=== PATIENT | female | born 1995 | race American Indian/Alaskan Native ===

== ENCOUNTER 2017-08-10 00:06 | Inpatient (IN) | payer MEDICAID, OTHER ==
[2017-08-10 01:01] VITALS: BMI 21.4
[2017-08-10] MEDS ORDERED: Lactated Ringer's 1,000 ML IV SCH ×3 (02:15→12:45)
--- NOTE | 2017-08-10 02:42 | OBHP ---
Datetime: 08/10/2017 02:40 IP Adm Impression: Term, intrauterine Admit Comment, IP Provider: 21 yo at 37 3/7 weeks GA based on US 07/07/17 as per pt, EDC presents to [facility] w/ complaints of ctx q20 min since 3 pm yesterday. Pt reports ctx got more tessa quent q5-6 min for the last one hour. Denies LOF, VB. +FM. Pt goes to [facility] and sees Dr. Worley. Last Visit was on 08/05/17 and GBS cx was taken in the last visit. GBS status is unknown. Reports all her 3rd trimester labs were negative including HI V, RPR, GC/C. Pt reports she is immune to rubella and hep B. PNC: Dr. Worley ([phone]). 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 Past OB hx: 1 miscarriage at 4 weeks GA in 07/2016. Past medical hx: anemia past surgery hx: none Medications: PNV, iron pills. Allergies: latex: itching Social hx: denies smoking cigarettes, drinking EtOH or recreational drug use. Family hx: denies family hx CAD, DMII or CA. Assessment: 21 yo IUP @37 3/7 Weeks GA Unknown GBS status Plan: Continuous heart tracing. IV LR 2 L @ 999 mls/hr obtain record in the morning OB Hospitalist Addendum: Pt seen and examined by me. Agree w/ above. 21 yo at 37+3 wks in labor. Pt reports painful ctxns, on and off, that started around 3:30pm, denies VB, LOF and repor ts FM. All other systems reviewed and negative. VE 65/-1 at 12:45 am. Pt given IVF and had becom e increasingly more uncomfortable. VE 80/-1 at 2:30 am. NST reactive. Pt to be admitted to L_D. GBS unknown. Will obtain PN records in the am. (ES) Extremities - PN: Normal Abdomen - PN: Normal Back - PN: Normal FHR - Baseline A Provider: 120s Membranes, Provider: Intact Vital Signs Provider: Reviewed IP Indication for Induction: Not Applicable IP Chief Complaint: Uterine contractions NICHD Variability Prov Fetus A: Moderate 6-25bpm NICHD Accel Fetus A IP Provider: [id number] FHR Category Provider Fetus A: Category I NICHD Decel Fetus A IP Provider: None Dilatation, Provider: 3 Effacement, Provider: 80 Station, Provider: -1 Genitourinary Exam: Normal Datetime: 08/10/2017 01:43 IP Admit Plan: Observation/Evaluation Pelvic Type - PN: Adequate Lungs - PN: Normal Heart - PN: Normal Neurologic - PN: Normal HEENT - PN: Normal General - PN: Normal Comments, ACOG Physical Exam: SVE: /1 Bedside US: Fetus in cephalic presenation
[2017-08-10 03:33] VITALS: O2SAT 100
[2017-08-10 03:44] LABS: BASO % 0.4 % (0.0-2.0); EOS % 0.4 % (0.0-4.0); HEMATOCRIT 28.8 % (34.0-47.0); LYMPH # 1.7 K/uL (1.0-4.3); LYMPH % 23.8 % (20.0-40.0); MEAN CELL VOLUME 75.8 fl (81.0-99.0); MEAN CORPUSCULAR HEMOGLOBIN 24.2 pg (27.0-31.0); MEAN PLATELET VOLUME 8.8 fl (7.2-11.7); MONO # 0.6 K/uL (0.0-0.8); MONO % 7.8 % (0.0-10.0); NEUT # 4.9 K/uL (1.8-7.0); NEUT % 67.6 % (50.0-75.0); NRBC % 0.1 % (0.0-0.0); RED CELL DISTRIBUTION WIDTH 17.4 % (11.5-14.5); WHITE BLOOD COUNT 7.2 K/uL (4.8-10.8)
[2017-08-10] MEDS ORDERED: Fentanyl/Bupivacaine HCl 250 ML EPI ONE (06:24)
[2017-08-10] MEDS ORDERED: Oxytocin 30 UNITS in Sodium Chloride 0.9% 500 ML IV SCH ×2 (09:15→17:15)
--- NOTE | 2017-08-10 09:34 | OBPN ---
Datetime: 08/10/2017 09:00 IP Progress Impression: Normal progression of labor; Reassuring heart rate IP Informed Consent Obtain: Vaginal Delivery; Risks, Benefits and Alternatives Discussed IP Progress Plan: Continue present management; Augmentation Pool Provider: Negative Membranes, Provider: Intact FHR - Baseline A Provider: 130 Presentation-Admit: Vertex IP Progress Note Comment: OB Hospitlist on-seda..,.Sign out rec'd... Discussion with pt about labor, delivrey, meds, pain managment...agreed to starting Pitocin augmen tation NICHD Accel Fetus A IP Provider: [id number] FHR Category Provider Fetus A: Category I NICHD Variability Prov Fetus A: Moderate 6-25bpm Dilatation, Provider: 4 NICHD Decel Fetus A IP Provider: None Datetime: 08/10/2017 02:40 Vital Signs Provider: Reviewed Effacement, Provider: 80 Station, Provider: -1
[2017-08-10] MEDS ORDERED: Lidocaine 1% Inj (20ml) ONE (16:06)
[2017-08-10] MEDS ORDERED: Oxycodone/Acetaminophen 5/325 mg Tab PO PRN (17:08)
[2017-08-10] MEDS ORDERED: Oxytocin 30 UNITS in Sodium Chloride 0.9% 500 ML IV ONE (18:40)
--- NOTE | 2017-08-10 18:47 | OBDS ---
DELIVERY PERSONNEL Delivery Doctor: Oralia Jackson DO Diesel Engine Engineer: Maddi Mcneill RN MATERNAL INFORMATION Delivery Anesthesia: Epidural Medications in Delivery: pitocin Estimated Blood Loss (ml): 200 Placenta Cultured: No Maternal Complications: None RN Comments: patient delivered viable girl. baby was clamped and placed on mother's chest for skin to skin. apgars were 9 and 9. patient was repaired for superficial lac, pitcocin 30units in 500ml LR infusing. patient and infant remained in stable condition. Provider Comments: Over intact perineum, of live female infant. 9,9. was placed on mother's chest. Placenta delivered intact spontaneously. EBL 200cc. She remained stable. (Annotations: Data stored by N on behalf of user) LABOR SUMMARY EDC: 08/28/2017 00:00 No. Babies in Womb: 1 Attempted: No Labor Anesthesia: Epidural LABOR INFORMATION Reason for Induction: Not Applicable Onset of Labor: 08/10/2017 02:30 Complete Dilatation: 08/10/2017 15:45 Oxytocin: Augmentation Group B Beta Strep: Negative (Annotations: 08/04/2017) Steroids Given: None Reason Steroids Not Administered: Not Applicable MEMBRANES Membranes Rupture Method: Artificial Rupture of Membranes: 08/10/2017 10:39 Length of Rupture (hrs): 6.23 Amniotic Fluid Color: Clear Amniotic Fluid Amount: Small Amniotic Fluid Odor: Normal STAGES OF LABOR Stage 1 hrs: 13 Stage 1 min: 15 Stage 2 hrs: 1 Stage 2 min: 8 Stage 3 hrs: 0 Stage 3 min: 3 Total Time in Labor hrs: 14 Total Time in Labor min: 26 VAGINAL DELIVERY Episiotomy: None Laceration Extension: N/A Laceration Type: Vaginal Laceration Repair: Yes Laceration Repair Note: Superficial left vaginal laceratoin was bleeding. 1% Lidocaine was infiltra eve )2cc). 2.0 Vicryl Rapdie suture x 1 was used for repair. Hemostasis assured Initial Vag Sponge Count: 5 Final Vag Sponge Count: 5 Initial Vag Sharps Count: 2 Final Vag Sharps Count: 2 Sponge Count Correct: Yes Sharps Count Correct: Yes Count Comment: One syringe; one suture BABY A INFORMATION Infant Delivery Date/Time: 08/10/2017 16:53 Method of Delivery: Vaginal Born in Route : No : N/A Forceps: N/A Vacuum Extraction: N/A Shoulder Dystocia : No SHOULDER DYSTOCIA BABY A Infant Delivery Date/Time: 08/10/2017 16:53 PRESENTATION/POSITION BABY A Presentation: Cephalic PLACENTA INFORMATION BABY A Placenta Delivery Time : 08/10/2017 16:56 Placenta Method of Delivery: Spontaneous Placenta Status: Delivered SCORES BABY A Heart Rate 1 min: >100 bpm Resp Effort 1 min: Good Cry Reflex Irritability 1 min: Cough or Sneeze or Pulls Away Muscle Tone 1 min: Active Motion Color 1 min: Body [place], Extremities Blue Resuscitation Effort 1 min: N/A SCORE 1 MIN: 9 Heart Rate 5 min: >100 bpm Resp Effort 5 min: Good Cry Reflex Irritability 5 min: Cough or Sneeze or Pulls Away Muscle Tone 5 min: Active Motion Color 5 min: Body Grandin, Extremities Blue Resuscitation Effort 5 min: N/A SCORE 5 MIN: 9 INFORMATION BABY A Gestational Age at Delivery: 37.1 Gestational Status: Term Outcome : Liveborn Condition : Stable Sex: Female IDENTIFICATION/MEDS BABY A ID Band Number: [id number] WEIGHT/LENGTH BABY A Infant Birthweight (gms): 2710 Infant Weight (lb): 6 Infant Weight (oz): 0 CORD INFORMATION BABY A No. Cord Vessels: 3 Nuchal Cord : N/A Cord Blood Taken: Yes Infant Suction: Mouth
[2017-08-10] MEDS: Benzocaine/Menthol SPRAY TOP PRN (22:50)
[2017-08-11 06:39] LABS: BASO % 0.1 % (0.0-2.0); EOS % 0.1 % (0.0-4.0); HEMATOCRIT 24.4 % (34.0-47.0); LYMPH # 2.1 K/uL (1.0-4.3); LYMPH % 13.5 % (20.0-40.0); MEAN CELL VOLUME 76.4 fl (81.0-99.0); MEAN CORPUSCULAR HEMOGLOBIN 23.6 pg (27.0-31.0); MEAN CORPUSCULAR HGB CONC 30.9 g/dL (33.0-37.0); MEAN PLATELET VOLUME 8.6 fl (7.2-11.7); MONO # 0.9 K/uL (0.0-0.8); NEUT # 12.6 K/uL (1.8-7.0); NEUT % 80.3 % (50.0-75.0); NRBC % 0.1 % (0.0-0.0); RED CELL DISTRIBUTION WIDTH 17.4 % (11.5-14.5); WHITE BLOOD COUNT 15.8 K/uL (4.8-10.8)
[2017-08-11] MEDS: Multivitamin With Minerals Tab PO SCH (08:25)
--- NOTE | 2017-08-11 12:07 | OBPPN ---
Datetime: 08/11/2017 06:41 PP Pain Prov: Within normal limits PP Nausea Prov: Denies PP Flatus Prov: Yes PP BM Prov: No PP Heart Prov: Normal PP Lungs Prov: Normal PP Abdomen/Uterus Prov: Normal PP Lochia Prov: Normal PP CVA Tenderness Prov: Normal PP Extremities Prov: Normal PP Impression Prov: Normal progression PP Plan Prov: Continue present management PP Progress Note Prov: PPD #1 21 y/o now seen and examined at bedside this morning. Pt had an uneventful overnight. Rep orts pain is controlled with pain medications. Voiding freely w/ minimal blood noted. Pt reports pass ing gas per rectum but no BM yet. Ambulating well w/o dizziness. Lochia is similar to menses volume. Pt is bottle feeding the baby. Denies nausea, vomiting, fever, chills, chest pain or calf pain. Physical Exam: General: A_O, resting comfortably in bed, NAD HEENT: oral mucosa moist. Lungs: CTA B/L, no wheezing, rhonchi or rales CVS: RRR, S1, S2 ABD: ND, +BS, firm fundus @ umbilical level. Soft, appropriate TTP. EXT: no edema, negative Willie's sign, Neuro/psych: AAOX3. assessment: 21 y/o now doing well on PDD 1 Plan: OOB w/ caution Regular diet Percocet and Ibuprofen for pain management Encourage and ambulatory Anticipate discharge tomorrow Sultan Guerra, PGY1 OB H addendum: Patient seen and examined by me agree with the above assessment and plan. The benefits maternal and of breast-feeding discussed and reinforced with patient. She st ates she will try breast-feeding and she is in the hospital. consult today. Vital Signs Provider PP: Reviewed; Within Normal Limits
[2017-08-12] MEDS: Benzocaine/Menthol SPRAY TOP PRN (08:49)
[2017-08-12] MEDS: Multivitamin With Minerals Tab PO SCH (08:49)
--- NOTE | 2017-08-12 09:18 | OBPPN ---
Datetime: 08/12/2017 07:30 PP Pain Prov: Within normal limits PP Nausea Prov: Denies PP Flatus Prov: Yes PP BM Prov: Yes PP Heart Prov: Normal PP Lungs Prov: Normal PP Abdomen/Uterus Prov: Normal PP Lochia Prov: Normal PP Vulva/Perineum Prov: Normal PP CVA Tenderness Prov: Normal PP Extremities Prov: Normal PP Impression Prov: Normal progression PP Plan Prov: Discharge PP Progress Note Prov: PPD #2 21 y/o now seen and examined at bedside this morning. No overnight events. Reports pain i s controlled with pain medications. Voiding freely w/o blood noted. Pt reports BM last night and kimo erating PO. Ambulating well w/o dizziness. Lochia is similar to menses volume. Pt is /b ottle feeding w/o difficulty. Denies nausea, vomiting, fever, chills, chest pain or calf pain. Denies chest pain, dizziness, blurry vision or palpitation. Physical Exam: General: A_O, resting comfortably in bed, NAD HEENT: oral mucosa moist. Lungs: CTA B/L, no wheezing, rhonchi or rales CVS: RRR, S1, S2 ABD: ND, +BS, firm fundus @ umbilical level. Soft, appropriate TTP. EXT: no edema, negative Willie's sign, Neuro/psych: AAOX3. Assessment: 21 y/o now doing well on PDD 2 asymptomatic anemia Plan: Discharge to home today PNV 1 PO qdaily Ibuprofen 600 mg 1 tab po prn q6 if moderate/severe pain Encourage . Ambulation with caution,nothing per vaginal, no heavy lifting, if excessive bleeding or fever w/o relief from Tylenol go to ED. Follow up at your clinic in 4-6 weeks Sultan Guerra, PGY1 The patient was seen with the resident I agree with the notes, patient cleared for discharge Vital Signs Provider PP: Reviewed; Within Normal Limits
--- NOTE | 2017-08-12 09:23 | OBDCSUM ---
Datetime: 08/12/2017 07:32 Discharged to, Provider: Home Follow up at, Provider: your with clinic doctor Disch Instr Activity: Normal activity Disch Instr Diet: Regular Discharge Instructions, Provider: Routine instructions given Discharge Diagnosis, Provider: Term Delivered Follow up in weeks, Provider: 4-6 weeks Disch Referrals: None Contraception discussed, Prov: Yes Disch Activity Restrictions: No lifting; No sexual activity; Nothing in vagina - [place], tampon s, douche Discharge Comment, Provider: Take Ibuprofen 600 mg 1 tablets every 6 hours as needed for moderate/severe pain Take Feosol 325 mg twice daily Take Senokot 1 tablet at night. 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 Patient cleared for discharge Contraception after Delivery: Control Pill/Patch
[2017-08-12 18:52] VITALS: BP 113/55; PULSE 87; RESP 20; TEMP 97.8
== END 2017-08-12 11:30 | disposition home or self-care (01) | DRG 373 ==
LOC: H.EROB2 00:06 → H.L&D 02:50 → H.OB/GYN 19:47
PROVIDERS: ADMIT Obstetrics & Gynecology; ATTEND Obstetrics & Gynecology
PROC: 10E0XZZ Delivery of Products of Conception, External Approach (ICD-10-PCS; principal; 2017-08-10)
PROC: 0UQG7ZZ Repair Vagina, Via Natural or Artificial Opening (ICD-10-PCS; 2017-08-10)
PROC: 10907ZC Drainage of Amniotic Fluid, Therapeutic from Products of Conception, Via Natural or Artificial Opening (ICD-10-PCS; 2017-08-10)
PROC: 4A1HXCZ Monitoring of Products of Conception, Cardiac Rate, External Approach (ICD-10-PCS; 2017-08-10)
DX: O99.02 Anemia complicating childbirth (principal); D64.9 Anemia, unspecified; O71.4 Obstetric high vaginal laceration alone; Z37.0 Single live birth; Z3A.37 37 weeks gestation of pregnancy; Z91.040 Latex allergy status